=== PATIENT | male | born 1975 | race Caucasian/White ===

== ENCOUNTER 2018-11-16 04:58 | Emergency (ER) | payer SELFPAY ==
[~2018-11-16] VITALS: Ht 180.3 cm; Wt 93.0 kg
--- NOTE | 2018-11-16 04:58 | NUR ---
[employer] CALLED TO FACILITY
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
--- NOTE | 2018-11-16 05:05 | NUR ---
PER ER MD/RAD, NO PNEUMOTHORAX/HEMOTHORAX NOTED
--- NOTE | 2018-11-16 05:08 | NUR ---
[facility] ON UNIT
--- NOTE | 2018-11-16 05:17 | NUR ---
TRANSFER INITIATED TO [facility]
[2018-11-16] MEDS ORDERED: IOPAMIDOL 370 MG/ML 200 ML INFUS..BTL INJ ONE (05:20)
[2018-11-16] MEDS ORDERED: SODIUM CHLORIDE 0.9% 50ML 50 ML ONE (05:20)
--- NOTE | 2018-11-16 05:22 | NUR ---
PT TO CT WITH THIS RN AND BLANCA SERRANON
--- NOTE | 2018-11-16 05:22 | NUR ---
[employer] [employer]RE[employer] SPEAKING TO MD AT [facility]
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
--- NOTE | 2018-11-16 05:40 | NUR ---
PT DEPARTED UNIT VIA [facility]
[2018-11-16] MEDS ORDERED: SODIUM CHLORIDE 0.9% 1000ML 1,000 ML ONE (05:46)
[2018-11-16 05:55] LABS: BASOPHILS % 0.3 % (0.0-1.0); HEMATOCRIT 35.1 % (38.2-49.6); HEMOGLOBIN 11.8 g/dL (14.0-18.0); LYMPHOCYTES % 10.2 % (18.0-39.1); MEAN CORPUSCULAR HEMOGLOBIN 28.6 pg (28-32); MEAN CORPUSCULAR HGB CONC 33.6 g/dL (31-35); MONOCYTES # (AUTO) 0.6 (0.2-0.8); MONOCYTES % 5.6 % (4.4-11.3); NEUTROPHILS # (AUTO) 8.1 (2.1-6.9); NEUTROPHILS % 83.5 % (38.7-80.0); PLATELET COUNT 219 x10e3/uL (140-360); RED BLOOD COUNT 4.13 x10e6/uL (4.3-5.7); RED CELL DISTRIBUTION WIDTH 16.4 % (11.7-14.4)
--- NOTE | 2018-11-16 05:56 | NUR ---
REPORT CALLED TO PASCALE VELASQUEZ AT [facility]
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
[2018-11-16 06:17] LABS: ALANINE AMINOTRANSFERASE 17 IU/L (0-55); ALBUMIN 3.7 g/dL (3.5-5.0); ALBUMIN/GLOBULIN RATIO 1.3 (0.8-2.0); ALKALINE PHOSPHATASE 61 IU/L (40-150); ANION GAP 17.2 mmol/L (8-16); BLOOD UREA NITROGEN 27 mg/dL (7-26); BUN/CREATININE RATIO 26 (6-25); CALCIUM 8.5 mg/dL (8.4-10.2); CARBON DIOXIDE 21 mmol/L (22-29); CHLORIDE 103 mmol/L (98-107); CREATININE, SERUM 1.04 mg/dL (0.72-1.25); EST GLOMERULAR FILTRATION RATE > 60 ML/MIN (60-); GLUCOSE 92 mg/dL (74-118); POTASSIUM 4.2 mmol/L (3.5-5.1); SODIUM 137 mmol/L (136-145)
--- NOTE | 2018-11-16 06:25 | NUR ---
RAD REPORTS AND LABS SENT TO [facility]
== END 2018-11-16 06:33 | disposition short-term general hospital (02) ==
LOC: EDBD 04:58 → ER 04:58
DX: S21.90XA Unspecified open wound of unspecified part of thorax, initial encounter (principal); X99.1XXA Assault by knife, initial encounter; Y92.488 Other paved roadways as the place of occurrence of the external cause
CPT/HCPCS: 36415; 71045; 71260; 74177; 80053; 85025; 93005; 99284; J7030; Q9967